=== PATIENT | female | born 1990 | race Caucasian/White ===

== ENCOUNTER 2018-04-11 08:52 | Emergency (ER) | payer SELFPAY ==
[~2018-04-11] VITALS: Ht 170.2 cm; Wt 135.2 kg
[2018-04-11 09:02] VITALS: Ht 170.2 cm; Wt 135.2 kg
[2018-04-11 10:34] LABS: CALCIUM 8.7 mg/dL (8.5-10.1); CARBON DIOXIDE 26.4 mmol/L (21-32); CHLORIDE SERUM 104 mmol/L (98-107); CREATININE SERUM 0.7 mg/dL (0.6-1.0); GFR1 > 60 mL/min; GLUCOSE SERUM 85 mg/dL (74-106); SODIUM SERUM 136 mmol/L (136-145)
[2018-04-11 10:53] LABS: ALKALINE PHOSPHATASE 66 U/L (46-116); ALT/SGPT 49 U/L (14-59); AST/SGOT 43 U/L (15-37); BILIRUBIN TOTAL 0.1 mg/dL (0.20-1.00)
[2018-04-11 10:54] LABS: ALBUMIN 3.1 g/dL (3.4-5.0); T4(THYROXINE) 14.6 ug/dL (4.7-13.3); TOTAL PROTEIN, SERUM 8.4 g/dL (6.4-8.2)
[2018-04-11 11:08] LABS: BASOPHIL % 0.6 % (0-2); RED CELL DISTRIBUTION WIDTH 13.2 % (11.5-14.5)
[2018-04-11 11:10] LABS: PLATELET COUNT 402 x10^3mcL (130-400)
[2018-04-11 13:26] VITALS: BP 131/51
== END 2018-04-11 13:26 | disposition home or self-care (01) ==
LOC: ED 08:52
PROVIDERS: Emergency Medicine
DX: N93.8 Other specified abnormal uterine and vaginal bleeding (principal); D64.9 Anemia, unspecified; E46 Unspecified protein-calorie malnutrition; Z98.890 Other specified postprocedural states
CPT/HCPCS: 36415; J7030